=== PATIENT | female | born 1990 | race Caucasian/White ===

== ENCOUNTER 2021-10-27 20:25 | Emergency (ER) | payer MEDICAID ==
[~2021-10-27] VITALS: Ht 172.7 cm; Wt 70.3 kg
[2021-10-27 20:35] VITALS: BP 131/80
[2021-10-27] MEDS ORDERED: HYDROCODONE/APAP 10/325MG TABLET PO ONE (21:00)
[2021-10-27] MEDS ORDERED: AMOX/CLAVULANATE 875 MG TABLET ONE (21:19)
[2021-10-27] MEDS ORDERED: HYDROCODONE/APAP 10/325MG TABLET ONE (21:19)
[2021-10-27] MEDS ORDERED: AMOX/CLAVULANATE 875 MG TABLET PO ONE (21:30)
[2021-10-27] MEDS ORDERED: AMOX-430 PO (22:02)
[2021-10-27] MEDS ORDERED: OXYC-117 PO (22:03)
--- NOTE | 2021-10-27 22:14 | NUR ---
Patient discharged to home in stable condition. Written and verbal after care instructions given. Patient verbalizes understanding of instruction.
== END 2021-10-27 22:16 | disposition home or self-care (01) ==
LOC: ER 20:27
DX: K08.89 Other specified disorders of teeth and supporting structures (principal); Z60.2 Problems related to living alone; Z79.899 Other long term (current) drug therapy